=== PATIENT | female | born 1955 | race Caucasian/White ===

== ENCOUNTER → 2023-09-01 | Outpatient (CLI) | payer MEDICARE, SELFPAY ==
--- NOTE | 2023-09-01 12:37 | RAD_ITS ---
STUDY: X-RAY - ABDOMEN/PELVIS REASON FOR EXAM: Female, 67 years old. Kidney stones. TECHNIQUE: Single AP view of the abdomen / pelvis on 2 images. COMPARISON: None. FINDINGS: Normal bowel gas pattern. Air seen to the rectosigmoid with no disproportionate dilatation of bowel. Moderate to marked amount of feces in the colon. Much of the intra-abdominal contours are obscured by overlying gas and feces. No abnormal calcifications are identified. Phleboliths in the pelvis. Normal osseous structures. RAD/Abdomen Single View IMPRESSION: No acute abnormality identified. Intra-abdominal contours limited by overlying bowel gas and feces. Electronically Signed: Austin Gannon MD at 15:17 EDT ,
== END | disposition home or self-care (01) ==
PROVIDERS: PCP Internal Medicine; Referring Provider Urology; Visit Provider Urology
DX: N20.0 Calculus of kidney (principal)
CPT/HCPCS: 74018

== ENCOUNTER → 2024-11-08 | Outpatient (CLI) | payer MEDICARE, SELFPAY ==
--- NOTE | 2024-11-08 11:32 | RAD_ITS ---
PROCEDURE: ABDOMEN SINGLE VIEW 11/08/2024 REASON FOR EXAM: KUB- KIDNEY STONES TECHNIQUE: ABDOMEN SINGLE VIEW COMPARISON: 09/01/2023 FINDINGS: Clear lung bases. No free air. Nonobstructed bowel. Moderate stool. Pelvic calcifications favoring phleboliths, 3 mm distal right ureteral stone not completely excluded.. Multiple right renal stones suspected, measuring up to 3 mm. Left renal shadow is obscured by overlying bowel. RAD/Abdomen Single View IMPRESSION: Right-sided nephrolithiasis and questionable distal right ureteral stone. If t he patient is symptomatic, consider CT. Reading Location: [facility]-
== END | disposition home or self-care (01) ==
LOC: MTRAD 11:28
PROVIDERS: PCP Internal Medicine; Referring Provider Urology; Visit Provider Urology
DX: N20.0 Calculus of kidney (principal)
CPT/HCPCS: 74018